=== PATIENT | female | born 1980 | race Two or more races ===

== ENCOUNTER 2020-07-30 07:30 | Inpatient (IN) | payer OTHER ==
[~2020-07-30] VITALS: Ht 167.6 cm; Wt 68.0 kg
== END 2020-08-07 10:45 | disposition home or self-care (01) | DRG 741 ==
LOC: O/R 08-05 06:40 → OB/GYN 08-05 06:40
PROVIDERS: ADMIT Obstetrics & Gynecology Gynecologic Oncology; ATTEND Obstetrics & Gynecology Gynecologic Oncology
PROC: 0UT24ZZ Resection of Bilateral Ovaries, Percutaneous Endoscopic Approach (ICD-10-PCS; 2020-08-05)
PROC: 0UT74ZZ Resection of Bilateral Fallopian Tubes, Percutaneous Endoscopic Approach (ICD-10-PCS; 2020-08-05)
PROC: 3E0F7SF Introduction of Other Gas into Respiratory Tract, Via Natural or Artificial Opening (ICD-10-PCS; 2020-08-05)
PROC: 07BC4ZX Excision of Pelvis Lymphatic, Percutaneous Endoscopic Approach, Diagnostic (ICD-10-PCS; principal; 2020-08-05 17:30)
PROC: 0UT94ZZ Resection of Uterus, Percutaneous Endoscopic Approach (ICD-10-PCS; principal; 2020-08-05 17:30)
DX: C54.1 Malignant neoplasm of endometrium (principal)

== ENCOUNTER 2021-11-04 17:55 | Emergency (ER) | payer OTHER ==
[~2021-11-04] VITALS: Ht 167.6 cm; Wt 70.3 kg
[2021-11-04] MEDS ORDERED: DOLOGEN CAPLET1 EACH PO (18:33)
[2021-11-04] MEDS ORDERED: NORFLEX100MG PO (18:33)
== END 2021-11-04 18:50 | disposition home or self-care (01) ==
LOC: ER 17:55
DX: M62.838 Other muscle spasm (principal)